=== PATIENT | female | born 1990 | race Caucasian/White ===

== ENCOUNTER 2021-12-21 01:51 | Inpatient (IN) | payer BC ==
[2021-12-21] MEDS ORDERED: Sodium Chloride 0.9% 10 ML Syringe FLUSH PRN (04:21)
[2021-12-21] MEDS ORDERED: Lactated Ringers 1,000 ML IV ONE (04:31)
[2021-12-21 05:32] LABS: CORONAVIRUS COVID-19 NAA NEGATIVE (NEGATIVE)
[2021-12-21] MEDS: Lactated Ringers 1,000 ML IV SCH ×2 (07:01→09:41)
[2021-12-21] MEDS ORDERED: Ropivacaine 100 ML ONE (08:45)
[2021-12-21] MEDS ORDERED: Ropivacaine 200 MG in Premix Bag 1 BAG EPIDUR SCH (08:45)
[2021-12-21] MEDS: ePHEDrine 50 MG/ML SDV IVPUSH PRN ×2 (08:52→08:59)
[2021-12-21] MEDS ORDERED: Ondansetron 4 MG Tab.DIS PO PRN (12:29)
[2021-12-21] MEDS ORDERED: Acetaminophen 325 MG Tab, 50 Tab Bulk Bottle PO PRN (19:17)
[2021-12-21] MEDS ORDERED: Ibuprofen 200 MG Tab, 24 Tab Bulk Bottle PO PRN (19:19)
[2021-12-22] MEDS: Cephalexin 250 MG Cap PO SCH (14:16)
[2021-12-23] MEDS: Cephalexin 250 MG Cap PO SCH (10:06)
[2021-12-25 22:10] LABS: T PALLIDUM ANTIBODIES Non Reactive (Non Reactive)
== END 2021-12-23 11:15 | disposition home or self-care (01) | DRG 560 ==
LOC: JP.OBCHECK 01:51 → JP.OB 01:51 → JP.OBCHECK 04:10 → OBSVTOIN 15:24 → JP.MS 20:30
PROVIDERS: ADMIT Obstetrics & Gynecology; ATTEND Obstetrics & Gynecology
PROC: 10E0XZZ Delivery of Products of Conception, External Approach (ICD-10-PCS; principal; 2021-12-21)
PROC: 10907ZC Drainage of Amniotic Fluid, Therapeutic from Products of Conception, Via Natural or Artificial Opening (ICD-10-PCS; 2021-12-21)
PROC: 0KQM0ZZ Repair Perineum Muscle, Open Approach (ICD-10-PCS; 2021-12-21)
PROC: 3E0R3BZ Introduction of Anesthetic Agent into Spinal Canal, Percutaneous Approach (ICD-10-PCS; 2021-12-21)
PROC: 00HU33Z Insertion of Infusion Device into Spinal Canal, Percutaneous Approach (ICD-10-PCS; 2021-12-21)
DX: O99.52 Diseases of the respiratory system complicating childbirth (principal); J45.909 Unspecified asthma, uncomplicated; Z37.0 Single live birth; O70.1 Second degree perineal laceration during delivery; Z20.822 Contact with and (suspected) exposure to COVID-19; O86.20 Urinary tract infection following delivery, unspecified; N39.0 Urinary tract infection, site not specified; O99.893 Other specified diseases and conditions complicating puerperium; R33.9 Retention of urine, unspecified; Z3A.39 39 weeks gestation of pregnancy
CPT/HCPCS: 0241U; 36415; 51702; 51798; 76700; 76700-26; 80048; 80305-QW; 81001; 85025; 85027; 86780; 86850; 86900; 86901; 87350; 87449; 99211; A9270-GY; J2590; J2795; J7120; Q0162